=== PATIENT | male | born 1995 | race Caucasian/White ===

== ENCOUNTER 2017-03-27 20:57 | Emergency (ER) | payer BC, OTHER ==
[~2017-03-27] VITALS: Ht 175.3 cm; Wt 71.0 kg
[2017-03-27 21:41] VITALS: TEMP 36.9; O2SAT 98; Ht 175.3 cm; Wt 71.0 kg
[2017-03-27 22:17] LABS: BUN/CREATININE RATIO 9.7 (10-20); CALCIUM 8.7 mg/dl (8.5-10.1); CREATININE 1.09 mg/dl (0.60-1.40); POTASSIUM 3.5 mmol/L (3.5-5.1)
--- NOTE | 2017-03-28 00:30 | EMERGENCY ROOM VISIT NOTE ---
History Report prepared by Sujatha: Taylor Bowens Under the Supervision of: Dr. Felipe Harrison D.O. First contact with patient: 21:17 Stated Complaint: ALCOHOL OVERDOSE History of Present Illness The patient is a 21 year old male who presents to the Emergency Room with complaints of constant alcohol intoxication beginning [employer]. The patient states that he was drinking today and his friend was concerned that he was too drunk. He reports that he was taken here in an ambulance. He denies any injury or medical issues. HPI limited secondary to intoxication. Source of History: patient Onset: [employer]IST[employer] Position: other (global) Quality: other (alcohol intoxication) Timing: constant Note: Pt denies any injury. Review of Systems See HPI for pertinent positives & negatives. A total of 10 systems reviewed and were otherwise negative. Past Medical & Surgical Medical Problems: (1) No Known Active Medical Problems Family History No pertinent family history stated. Social History Marital Status: single Housing Status: lives with family Occupation Status: employed Current/Historical Medications No Active Prescriptions or Reported Meds Allergies Coded Allergies: No Known Allergies (Unverified , 03/27/17) Physical Exam Vital Signs Date Time Temp Pulse Resp B/P (MAP) Pulse Ox O2 Delivery O2 Flow Rate FiO2 03/27/17 22:30 78 18 97/40 98 Room Air 03/27/17 22:00 88 18 116/50 93 Room Air 03/27/17 21:41 98 Room Air 03/27/17 21:41 36.9 95 18 112/47 98 Room Air 03/27/17 21:23 103 Physical Exam CONSTITUTIONAL/VITAL SIGNS: Reviewed / noted above. GENERAL: Non-toxic in appearance. INTEGUMENTARY: Warm, dry, and [place]. HEAD: Normocephalic. EYES: without scleral icterus or trauma. ENT/OROPHARYNX: clear and moist. LYMPHADENOPATHY/NECK: Is supple without lymphadenopathy or meningismus. RESPIRATORY: Lungs clear and equal. CARDIOVASCULAR: Regular rate and rhythm. GI/ABDOMEN: Soft and nontender. No organomegaly or pulsatile mass. No rebound or guarding. Normal bowel sounds. EXTREMITIES: Warm and well perfused. BACK: No CVA tenderness. NEUROLOGICAL: Intact without focal deficits. PSYCHIATRIC: normal affect. MUSCULOSKELETAL: Normally developed with good muscle tone. Medical Decision & Procedures Laboratory Results 03/27/17 21:27 Test 03/27/17 21:27 Anion Gap 8.0 mmol/L (3-11) Est Creatinine Clear Calc Drug Dose 109.1 ml/min Estimated GFR () 113.4 Estimated GFR (Non- 97.9 BUN/Creatinine Ratio 9.7 (10-20) Calcium Level 8.7 mg/dl (8.5-10.1) Ethyl Alcohol mg/dL 314.0 mg/dl (0-3) Laboratory results as stated above per my review. ED Course 2116: Previous medical records were reviewed. The patient was evaluated in room B4B. A complete history and physical examination was performed. 0027: I reevaluated the patient. He will be going home at 8am. Medical Decision There is no evidence of other toxic ingestions, trauma, anemia, hypoglycemia, head injury or intracranial pathology, meningitis, encephalitis, acute intrathoracic or abdominal pathology or other metabolic condition. The patient is a 21-year-old male who is brought in for alcohol intoxication by EMS. The patient was able to answer questions on his arrival. He denies any medical issues or trauma. The patient remained in an aspiration precaution position during his ED stay. The patient remained on the monitor without ectopy. Pulse ox was never shown any evidence of hypoxia. Blood pressure never showed significant hypotension. The patient was observed during the entire night and awoke in the morning. The mental status improved and the patient was awake alert and oriented and was felt stable for discharge. Patient was discharged home. Medication Reconcilliation Current Medication List: was personally reviewed by me Blood Pressure Screening Patient's blood pressure: Normal blood pressure Blood pressure disposition: Did not require urgent referral Impression Primary Impression: Alcohol use with intoxication Scribe Attestation The scribe's documentation has been prepared under my direction and personally reviewed by me in its entirety. I confirm that the note above accurately reflects all work, treatment, procedures, and medical decision making performed by me. Departure Information Dispostion Home / Self-Care Prescriptions No Active Prescriptions or Reported Meds Patient Instructions ED Alcohol Intoxication, [facility]: [employer] Students and Alcohol Related Visits, My [facility] Additional Instructions Do not drink alcohol.
[2017-03-28 06:26] VITALS: BP 98/66; PULSE 88; O2SAT 98
== END 2017-03-28 06:33 | disposition home or self-care (01) ==
LOC: EDBD 20:57 → C.EDB 20:58
DX: F10.129 Alcohol abuse with intoxication, unspecified (principal); Y90.8 Blood alcohol level of 240 mg/100 ml or more